=== PATIENT | female | born 1980 | race Caucasian/White ===

== ENCOUNTER 2019-11-06 15:25 | Inpatient (IN) | payer OTHER, MEDICAID ==
[~2019-11-06] VITALS: Ht 162.6 cm; Wt 72.6 kg
[2019-11-06 16:23] LABS: Basophils # (auto) 0 10 ^3/uL (0-0.2); Eosinophils # (auto) 0 10 ^3/uL (0-0.8); Lymphocytes # (auto) 0.5 10 ^3/uL (0.4-5.4); Mean Corpuscular Hemoglobin 26.5 pg (28.0-32.0); Monocytes # (auto) 0.4 10 ^3/uL (0-1.3); Neutrophils # (auto) 2.9 10 ^3/uL (1.6-8.6); White Blood Cell 3.9 10^3/uL (4.4-10.8)
[2019-11-06 16:24] LABS: Basophils % (auto) 0.3 % (0.0-2.0); Eosinophils % (auto) 0.4 % (0.0-7.0); Hematocrit 22.4 % (36.0-46.0); Lymphocytes % (auto) 13.5 % (10.0-50.0); Mean Corpuscular Hgb Conc. 30.6 g/dL (32.0-36.0); Mean Corpuscular Volume 86.6 fL (80.0-100.0); Monocytes % (auto) 10.3 % (0.0-12.0); Neutrophils % (auto) 75.5 % (37.0-80.0); Platelet Count (auto) 173 10^3/uL (140-450); Red Blood Cells 2.59 10^6/uL (4.0-5.20); Red Cell Distribution Width 19.9 % (11.8-14.3)
[2019-11-06 16:26] LABS: Urine Bacteria FEW /hpf (None Seen); Urine Blood Negative /uL (Negative); Urine Mucus FEW (None Seen); Urine Specific Gravity 1.013 (1.001-1.035); Urine WBC 1 /hpf (0 - 5)
[2019-11-06 16:32] LABS: Hemoglobin 6.9 g/dL (12.2-16.2)
[2019-11-06 16:42] LABS: Calcium 8.1 mg/dL (8.5-10.1); Potassium 3.3 mmol/L (3.5-5.1)
[2019-11-06 16:47] LABS: BUN/Creatinine Ratio 7.1; Bilirubin, Total 2.3 mg/dL (0.2-1.0); Total Protein 7.3 g/dL (6.4-8.2)
[2019-11-06 19:37] LABS: INR 1.42 (0.9-1.15); Partial Thromboplastin Time 30.2 sec (23.64-32.05)
[2019-11-06] MEDS ORDERED: ONDANSETRON HCL 4 MG/2 ML VIAL IV PRN (20:45)
[2019-11-06 21:15] VITALS: BP 134/77
[2019-11-06 21:30] VITALS: BP 136/69
[2019-11-06 21:45] VITALS: BP 127/78
--- NOTE | 2019-11-06 22:10 | NUR ---
MS admit from ER BRUCE RAPHAEL admitted to tele/MS after SBAR received. Patient oriented to Desiree Gomez, primary RN, unit, room, bed, and unit policies regarding patient care and visiting hours. Patient weighed by bedscale and encouraged to call if they need something. All questions and concerns addressed, patient verbalized understanding. Note:
--- NOTE | 2019-11-06 22:53 | NUR ---
SPOKE WITH DR SALINAS BECAUSE THE PATIENT STATES SHE TAKES LUNESTA 40 MG; DESERYL 100 MG AND OXYCONTIN 100 MG ALL TOGETHER EACH NIGHT BEFORE SLEEPING. DR SALINAS ORDERED [facility] ONLY. WILL INFORM PATIENT.
[2019-11-06] MEDS ORDERED: HYDROcodone-ACET 5/325MG TAB PO PRN (23:30)
[2019-11-07 01:10] VITALS: BP 120/63
[2019-11-07 05:00] VITALS: BP 103/51
[2019-11-07 05:18] LABS: Basophils # (auto) 0 10 ^3/uL (0-0.2); Eosinophils # (auto) 0.1 10 ^3/uL (0-0.8); Hematocrit 24.3 % (36.0-46.0); Lymphocytes # (auto) 0.9 10 ^3/uL (0.4-5.4); Mean Corpuscular Hemoglobin 27.8 pg (28.0-32.0); Monocytes # (auto) 0.5 10 ^3/uL (0-1.3); Neutrophils # (auto) 2.6 10 ^3/uL (1.6-8.6); Nucleated Red Blood Cells % 0.1 %; White Blood Cell 4.1 10^3/uL (4.4-10.8)
[2019-11-07 05:22] LABS: Basophils % (auto) 0.3 % (0.0-2.0); Eosinophils % (auto) 2.3 % (0.0-7.0); Hemoglobin 7.8 g/dL (12.2-16.2); Lymphocytes % (auto) 21.1 % (10.0-50.0); Mean Corpuscular Hgb Conc. 32.1 g/dL (32.0-36.0); Mean Corpuscular Volume 86.4 fL (80.0-100.0); Monocytes % (auto) 11.2 % (0.0-12.0); Neutrophils % (auto) 65.1 % (37.0-80.0); Platelet Count (auto) 136 10^3/uL (140-450); Red Blood Cells 2.81 10^6/uL (4.0-5.20)
[2019-11-07 05:41] LABS: Potassium 3.6 mmol/L (3.5-5.1)
[2019-11-07 06:09] LABS: Albumin 2.5 g/dL (3.4-5.0); BUN/Creatinine Ratio 11.5; Bilirubin, Total 3.5 mg/dL (0.2-1.0); Calcium 7.9 mg/dL (8.5-10.1); Total Protein 6.2 g/dL (6.4-8.2)
--- NOTE | 2019-11-07 06:50 | NUR ---
2ND UNIT OF BLOOD COMPLETED AT 0330;HOWEVER DOCUMENTATION IN COMPUTER FOR 0648 IS IN ERROR BECAUSE THE COMPUTER WOULD NOT ALLOW THE CORRECT TIME TO BE RECORDED.
[2019-11-07 09:00] VITALS: BP 116/54
--- NOTE | 2019-11-07 12:30 | NUR ---
RECEIVED CALL FROM DR. GREGG IN REGARDS TO PATIENT STATUS. DISCHARGE ORDER RECEIVED, WILL DOCUMENT AND CARRY OUT
[2019-11-07 13:00] VITALS: BP 116/71
[2019-11-07 13:38] VITALS: BP 116/71
--- NOTE | 2019-11-07 14:44 | NUR ---
Discharge instructions given as ordered. Encourage to follow up with PMD as instructed. All questions and concerns addressed. Patient verbalized understanding. IV removed with catheter intact, pressure dressing applied. Patient taken to vehicle via wheelchair with all personal belongings, accompanied by staff. No distress noted at time of departure.
== END 2019-11-07 14:40 | disposition home or self-care (01) | DRG 812 ==
LOC: ER 15:25 → OVERFLOW 15:26 → WEST WING 22:26
PROVIDERS: ADMIT Internal Medicine; ATTEND Internal Medicine
PROC: 30233N1 Transfusion of Nonautologous Red Blood Cells into Peripheral Vein, Percutaneous Approach (ICD-10-PCS; principal; 2019-11-06)
DX: D64.9 Anemia, unspecified (principal); M30.0 Polyarteritis nodosa; E87.6 Hypokalemia; F17.210 Nicotine dependence, cigarettes, uncomplicated; M06.9 Rheumatoid arthritis, unspecified; M13.0 Polyarthritis, unspecified; Z82.49 Family history of ischemic heart disease and other diseases of the circulatory system; Z98.84 Bariatric surgery status; Z90.49 Acquired absence of other specified parts of digestive tract
CPT/HCPCS: 36415; 36430; 71045; 80053; 81001; 81025; 85025; 85610; 85730; 86850; 86900; 86901; 86920; 99291; G0378